=== PATIENT | female | born 1945 | race Caucasian/White ===

== ENCOUNTER 2020-05-26 12:59 | Emergency (ER) | payer MEDICARE ==
[~2020-05-26] VITALS: Ht 162.6 cm; Wt 78.0 kg
[2020-05-26] MEDS ORDERED: ACETAMINOPHEN 325MG TABLET PO STA (15:21)
[2020-05-26] MEDS ORDERED: ALBUTEROL 6.7GM HFA INHALER ORI ONE (15:30)
[2020-05-26 19:33] LABS: BASOPHILS % 0.2 % (0.0-2.0); HEMATOCRIT. 36.2 % (36.0-48.0); HEMOGLOBIN. 12.3 g/dL (12.0-16.0); LYMPHOCYTES % 13.5 % (20.0-50.0); MEAN CORPUSCULAR HEMOGLOBIN 30.7 pg (28.0-32.0); MEAN CORPUSCULAR VOLUME 90.2 fL (81.0-99.0); MEAN PLATELET VOLUME 8.3 fl (7.4-10.4); MONOCYTES % 2.8 % (2.0-8.0); NEUTROPHILS % 83.5 % (40.0-76.0); PLATELET 208 x1000/uL (130-400); RED BLOOD CELL COUNT 4.01 mill/uL (4.2-5.4); RED CELL DISTRIBUTION WIDTH 12.9 % (11.6-14.6)
[2020-05-26 19:34] LABS: CHLORIDE 95 mEq/L (98-107)
[2020-05-26 19:37] LABS: PROTHROMBIN TIME 10.3 sec (9.6-11.0)
[2020-05-26] MEDS ORDERED: CEFTRIAXONE 1 G PREMIX 50 ML IV ONE (20:45)
[2020-05-26] MEDS ORDERED: AZITHROMYCIN 500 MG TABLET PO ONE (20:45)
[2020-05-26 23:01] LABS: CLARITY URINE CLEAR (CLEAR); COLOR URINE DARK YELLOW (YELLOW); KETONES URINE 1+ (NEGATIVE); LEUKOCYTE ESTERASE URINE NEGATIVE (NEGATIVE); NITRITE URINE NEGATIVE (NEGATIVE); OCCULT BLOOD URINE NEGATIVE (NEGATIVE); PROTEIN URINE 1+ (NEGATIVE); SPECIFIC GRAVITY URINE 1.027 (1.005-1.030); UROBILINOGEN URINE 0.2 E.U./dL (0.2-1.0)
[2020-05-26] MEDS ORDERED: DEXT 5%/0.9% NACL 1,000 ML IV SCH (23:30)
[2020-05-26] MEDS ORDERED: ACETAMINOPHEN 325MG TABLET PO SCH (23:30)
[2020-05-26] MEDS ORDERED: DEXAMETHASONE 4MG/ML 1ML VIAL IV SCH (23:30)
[2020-05-27] MEDS ORDERED: ENOXAPARIN 40MG/0.4ML SYR SUBCUT SCH (09:00)
[2020-05-27 09:55] VITALS: BP 138/57
== END 2020-05-27 10:40 | disposition left against medical advice (07) ==
LOC: ER 12:59 → EDBEDREQTM 21:10 → EDBEDREQSVC 21:10 → EDBEDREQ 21:10 → ER 05-27 10:40 → CANBEDREQ 05-27 15:45
DX: U07.1 COVID-19 (principal); J18.9 Pneumonia, unspecified organism; E87.1 Hypo-osmolality and hyponatremia
CPT/HCPCS: 36415; 71045; 80053; 81003; 83605; 84145; 84484; 85025; 85379; 85610; 87040; 87086; 93005; 96361; 96374; 99285; C9803; J0696; U0003